=== PATIENT | female | born 1935 | race Caucasian/White ===

== ENCOUNTER 2019-11-03 20:11 | Emergency (ER) | payer MEDICARE, OTHER ==
[2019-11-03 20:55] VITALS: O2SAT 99
--- NOTE | 2019-11-03 21:00 | ERPHSYRPT ---
- History of Present Illness Time Seen by Provider: 11/03/19 20:30 Source: patient Patient Subjective Stated Complaint: pt states that she was reaching around her indoor bike, pt states that she got her finger stuck in the clamp, pt states that she tried to get her finger out but it keep tearing Triage Nursing Assessment: pt ambulated into er with cane, pt is axo x4, pt has laceration to rt middle finger, laceration measures 3 cm x 0.5 cm and 1 cm x 0.5 cm, pt states 5/10 pain to rt middle finger Physician History: 84 years old female presented in the ER after her right third digit accidentally got stuck in hook and exercising indoor bike at home prior to arrival causing care on dorsal aspect. There was bleeding initially but stopped after applying pressure. She is still able to move her interphalangeal joint but painful. Patient described this as a sharp shooting pain moderate intensity, more with movements and better with being still. Denies any distal numbness. Up-to-date with tetanus. No injury anywhere else. Occurred: just prior to arrival Method of Injury: fell Quality: constant Severity of Pain-Max: moderate Severity of Pain-Current: moderate Extremities Pain Location: 3rd finger: right Modifying Factors: Improves With: immobilization, movement Associated Symptoms: none Allergies/Adverse Reactions: Sulfa (Sulfonamide Antibiotics) [Sulfa(Sulfonamide Antibiotics)] Allergy ( Intermediate, Verified 11/03/19 20:56) Hives adhesive Adverse Reaction (Intermediate, Verified 11/03/19 20:56) Home Medications: Citalopram Hydrobromide 20 mg* [ceLEXa 20 MG] 20 mg PO HS 01/15/12 [History] Omeprazole 20 MG [Prilosec 20 mg] 20 mg PO DAILY 01/15/12 [History] Tramadol HCl 50 mg [Ultram 50 mg] 50 mg PO DAILY 01/15/12 [History] Zolpidem Tartrate 5 mg [Ambien 5 MG Tablet] 5 mg PO HS 11/03/19 [History] Hx Tetanus, Diphtheria Vaccination/Date Given: Yes Hx Influenza Vaccination/Date Given: Yes Hx Pneumococcal Vaccination/Date Given: Yes Travel Risk - International Travel Have you traveled outside of the country in past 3 weeks: No Have you or anyone close to you been diagnosed with or: No Do your reside in a community with a known COVID-19 case?: Yes If Yes where:: [place] - Coronavirus Screening Has patient experienced Coronavirus symptoms: No - Review of Systems Constitutional: No Symptoms Eyes: No Symptoms Ears, Nose, & Throat: No Symptoms Respiratory: No Symptoms Cardiac: No Symptoms Abdominal/Gastrointestinal: No Symptoms Musculoskeletal: Injury Skin: Skin Lesions Neurological: No Symptoms Psychological: No Symptoms Endocrine: No Symptoms - Past Medical History Pertinent Past Medical History: Yes Neurological History: No Pertinent History ENT History: No Pertinent History Cardiac History: No Pertinent History Respiratory History: No Pertinent History Endocrine Medical History: No Pertinent History Musculoskeletal History: Arthritis, Fractures, Osteoarthritis, Osteoporosis GI Medical History: No Pertinent History History: No Pertinent History Psycho-Social History: No Pertinent History Female Reproductive Disorders: No Pertinent History - Past Surgical History Past Surgical History: Yes Neuro Surgical History: No Pertinent History Cardiac: Cardiac Catheterization Respiratory: No Pertinent History Gastrointestinal: Hemorrhoidectomy Genitourinary: No Pertinent History Musculoskeletal: Other Female Surgical History: Hysterectomy Other Surgical History: childbirth x three natural,, cataract surgery,ortho- 2010 or 2011 shoulder with pins/lillie placed,[id number] neck fracture with a brace applied only. No surgery. fx left hip with orif 01/2016 - Social History Smoking Status: Never smoker Exposure to second hand smoke: No Drug Use: none Patient Lives Alone: No - Female History Hx Now: No - Nursing Vital Signs Nursing Vital Signs: Initial Vital Signs Temperature 98.4 F 11/03/19 20:41 Pulse Rate 69 11/03/19 20:41 Respiratory Rate 13 11/03/19 20:41 Blood Pressure 152/76 11/03/19 20:41 O2 Sat by Pulse Oximetry 99 11/03/19 20:41 Pain Scale Pain Intensity 2 - Physical Exam General Appearance: no apparent distress Eyes, Ears, Nose, Throat Exam: normal ENT inspection, pharynx normal Neck Exam: normal inspection, supple Cardiovascular/Respiratory Exam: normal breath sounds, regular rate/rhythm Shoulder Exam: non-tender, no evidence of injury, normal ROM Elbow/Forearm Exam: normal inspection, non-tender, no evidence of injury, normal ROM Wrist Exam: normal inspection, non-tender, no evidence of injury, normal ROM Hand Exam: laceration (Right third digit dorsal aspect middle phalanx intact movements at proximal and distal interphalangeal joint. Intact sensations distally. Cap refill less than 2 seconds), limited ROM Neuro/Tendon Exam: normal sensation, normal tendon functions Mental Status Exam: alert, oriented x 3, cooperative Skin Exam: normal color SpO2 Interpretation: normal SpO2: 99 O2 Delivery: Room Air Procedures - Laceration/Wound Repair Right Dorsal Finger Wound Location: hand Wound Length (cm): 4 Wound's Depth, Shape: superficial Wound Explored: clean Irrigated: Yes Hibiclens Prep: Yes Anesthesia: local, 1% Lidocaine Volume Anesthetic (ccs): 2 Suture Size/Type: 4-0, prolene Number of Sutures: 7 Layer Closure?: No - Course Nursing assessment & vital signs reviewed: Yes Ordered Tests: Active Orders 24 hr Category Date Time Status Isolation, Initiate & Maintain Q4H Care 11/03/19 20:55 Active - Progress Progress: improved, pain not gone completely Progress Note: 11/03/19 laceration is repaired. It was superficial injury no signs of bone trauma. Tendon seems intact. Recommended taking Tylenol/tramadol which she has at home as needed and outpatient follow-up. Counseled pt/family regarding: diagnosis, need for follow-up - Departure Departure Disposition: Home Clinical Impression: Finger laceration Qualifiers: Encounter type: initial encounter Finger: middle finger Damage to nail status: without damage Foreign body presence: without foreign body Laterality: right Qualified Code(s): S61.212A - Laceration without foreign body of right middle finger without damage to nail, initial encounter Condition: Stable Critical Care Time: No Referrals: DOCTOR,NO FAMILY [Primary Care Provider] - KAITY NI, [ACTIVE STAFF] - Instructions: Laceration Repair With Stitches (DC) Additional Instructions: keep it clean , take pain meds as needed. follow up with PCP for re evaluation and suture removal in 7-10 days . return for increased pain/swelling/redness discharge /fever.
[2019-11-03 21:10] VITALS: BP 138/90; PULSE 66
== END 2019-11-03 21:07 | disposition home or self-care (01) ==
LOC: ED 20:11
DX: S61.212A Laceration without foreign body of right middle finger without damage to nail, initial encounter (principal); W23.1XXA Caught, crushed, jammed, or pinched between stationary objects, initial encounter; Y93.B1 Activity, exercise machines primarily for muscle strengthening; M79.644 Pain in right finger(s); Z79.899 Other long term (current) drug therapy; M81.0 Age-related osteoporosis without current pathological fracture; M19.90 Unspecified osteoarthritis, unspecified site
CPT/HCPCS: 12002; 99283

== ENCOUNTER 2020-11-18 09:55 | Observation (INO) | payer MEDICARE, OTHER ==
[2020-11-18] MEDS ORDERED: Sodium Chloride 0.9% 1000 ML 1,000 ML IV SCH (10:30)
[2020-11-18] MEDS ORDERED: Sodium Chloride 0.9% 1000 ML 1,000 ML ONE (10:34)
--- NOTE | 2020-11-18 10:34 | ERPHSYRPT ---
- History of Present Illness Time Seen by Provider: 11/18/20 10:10 Historian: patient Exam Limitations: no limitations Patient Subjective Stated Complaint: Diarrhea Triage Nursing Assessment: Patient brought back to ED via w/c and transferred self to bed. Patient A+O X3. Patient's skin pink, warm and dry. Patient states she has been having diarrhea since Sunday. Patient states her dionte legs are cramping and she is feeling weak. Patient denies N/V or abdominal pain. Physician History: Patient is an 85-year-old female presents to our emergency department with complaints of generalized weakness which she attributes to diarrhea. Patient has also experienced leg cramping. Patient states she has had diarrhea since Mo . Today is day 4. Patient states she has been trying to rehydrate herself with Gatorade however patient states that Gatorade runs right through her. Patient denies pain. No nausea no vomiting. No recent travel. Stool is nonbloody nonbilious. No fever. No sick contacts. No URI symptomology. No cough. No rash. Daughter at bedside. Patient has been taking Imodium for her diarrhea however this has not been very helpful. They voiced no other complaints concerns at this time. Timing/Duration: day(s) (4 days) Activities at Onset: none Quality: other (Patient has no pain.) Abdominal Pain Onset Location: other Pain Radiation: no radiation Severity of Pain-Max: none Severity of Pain-Current: none Modifying Factors: Improves With: nothing Associated Symptoms: weakness Previous symptoms: no prior history Allergies/Adverse Reactions: Sulfa (Sulfonamide Antibiotics) [Sulfa(Sulfonamide Antibiotics)] Allergy (Intermediate, Verified 11/18/20 10:06) Hives adhesive Adverse Reaction (Intermediate, Verified 11/18/20 10:06) Home Medications: Citalopram Hydrobromide 20 mg* [ceLEXa 20 MG] 20 mg PO HS 01/15/12 [History] Omeprazole 20 MG [Prilosec 20 mg] 20 mg PO DAILY 01/15/12 [History] Tramadol HCl 50 mg [Ultram 50 mg] 50 mg PO DAILY 01/15/12 [History] Zolpidem Tartrate 5 mg [Ambien 5 MG Tablet] 5 mg PO HS 11/03/19 [History] Hx Tetanus, Diphtheria Vaccination/Date Given: Yes Hx Influenza Vaccination/Date Given: Yes Hx Pneumococcal Vaccination/Date Given: Yes Immunizations Up to Date: Yes Travel Risk - International Travel Have you traveled outside of the country in past 3 weeks: No - Coronavirus Screening Are you exhibiting any of the following symptoms?: No Close contact with a COVID-19 positive Pt in past 14-21 Days: No - Vaccine Status Have you recieved a Covid-19 vaccination: Yes General Internist: Moderna - Vaccination Dates Date of 2cond Vaccination (if applicable): 07/21/2020 - Review of Systems Constitutional: No Symptoms, No Fever, No Chills Eyes: No Symptoms Ears, Nose, & Throat: No Symptoms Respiratory: No Symptoms, No Cough, No Dyspnea Cardiac: No Symptoms, No Chest Pain, No Edema, No Syncope Abdominal/Gastrointestinal: No Symptoms, No Abdominal Pain, No Nausea, No Vomiting, No Diarrhea Genitourinary Symptoms: No Symptoms, No Dysuria Musculoskeletal: No Symptoms, No Back Pain, No Neck Pain Skin: No Symptoms, No Rash Neurological: No Symptoms, No Dizziness, No Focal Weakness, No Sensory Changes Psychological: No Symptoms Endocrine: No Symptoms Hematologic/Lymphatic: No Symptoms Immunological/Allergic: No Symptoms All Other Systems: Reviewed and Negative - Past Medical History Pertinent Past Medical History: Yes Neurological History: No Pertinent History ENT History: No Pertinent History Cardiac History: No Pertinent History Respiratory History: No Pertinent History Endocrine Medical History: No Pertinent History Musculoskeletal History: Arthritis, Fractures, Osteoarthritis, Osteoporosis GI Medical History: No Pertinent History History: No Pertinent History Psycho-Social History: No Pertinent History Female Reproductive Disorders: No Pertinent History - Past Surgical History Past Surgical History: Yes Neuro Surgical History: No Pertinent History Cardiac: Cardiac Catheterization Respiratory: No Pertinent History Gastrointestinal: Hemorrhoidectomy Genitourinary: No Pertinent History Musculoskeletal: Other Female Surgical History: Hysterectomy Other Surgical History: childbirth x three natural,, cataract surgery,ortho- 2010 or 2011 shoulder with pins/lillie placed,[id number] neck fracture with a brace applied only. No surgery. fx left hip with orif 01/2016 - Social History Smoking Status: Never smoker Exposure to second hand smoke: No Drug Use: none Patient Lives Alone: Yes - Female History Hx Now: No - Nursing Vital Signs Nursing Vital Signs: Initial Vital Signs Temperature 98.5 F 11/18/20 10:08 Pulse Rate 84 11/18/20 10:08 Respiratory Rate 18 11/18/20 10:08 Blood Pressure 154/95 11/18/20 10:08 O2 Sat by Pulse Oximetry 100 11/18/20 10:08 Pain Scale Pain Intensity 7 - Physical Exam General Appearance: no apparent distress, alert Eye Exam: PERRL/EOMI, eyes nml inspection Ears, Nose, Throat Exam: normal ENT inspection, pharynx normal, moist mucous membranes Neck Exam: normal inspection, non-tender, supple, full range of motion Respiratory Exam: normal breath sounds, lungs clear, No respiratory distress Cardiovascular Exam: regular rate/rhythm, normal heart sounds Gastrointestinal/Abdomen Exam: soft, No tenderness, No mass Back Exam: normal inspection, normal range of motion, No CVA tenderness, No vertebral tenderness Extremity Exam: normal inspection, normal range of motion, pelvis stable Neurologic Exam: alert, oriented x 3, cooperative, normal mood/affect, nml cerebellar function, sensation nml, No motor deficits Skin Exam: normal color, warm, dry Lymphatic Exam: adenopathy SpO2 Interpretation: normal SpO2: 100 O2 Delivery: Room Air - Course Nursing assessment & vital signs reviewed: Yes EKG Interpreted by Me: RATE (82), Sinus Rhythm, NORMAL AXIS, NORMAL INTERVALS Ordered Tests: Active Orders 24 hr Category Date Time Status IV Insertion STAT Care 11/18/20 10:27 Active CBC W DIFF Stat Lab 11/18/20 10:49 Completed CMP Stat Lab 11/18/20 10:49 Completed LIPASE Stat Lab 11/18/20 10:49 Completed MAG [MAGNESIUM] Stat Lab 11/18/20 11:47 Completed TROPONIN Q3H Lab 11/18/20 12:00 Completed TROPONIN Q3H Lab 11/18/20 15:00 Ordered TROPONIN Q3H Lab 11/18/20 18:00 Ordered TROPONIN Q3H Lab 11/18/20 21:00 Ordered TROPONIN Q3H Lab 11/19/20 00:00 Ordered UA W/RFX UR CULTURE Stat Lab 11/18/20 10:33 Completed Transfer Order Routine Transfer 11/18/20 Ordered Medication Summary Generic Name Dose Route Start Last Admin Trade Name Freq PRN Reason Stop Dose Admin Sodium Chloride 1,000 mls @ 100 mls/hr 11/18/20 10:30 11/18/20 10:35 Sodium Chloride 0.9% 1000 Ml IV 12/18/20 10:29 100 mls/hr .Q10H CLAUDIA Administration Discontinued Medications Generic Name Dose Route Start Last Admin Trade Name Gino PRN Reason Stop Dose Admin Lorazepam Confirm 11/18/20 11:41 Ativan 1 Mg Administered 11/18/20 11:42 Dose 1 mg .ROUTE .STK-MED ONE Lorazepam 0.5 mg 11/18/20 11:46 11/18/20 11:49 Ativan 0.5 Mg PO 11/18/20 11:47 0.5 mg STAT ONE Administration Morphine Sulfate 2 mg 11/18/20 14:03 11/18/20 14:05 Morphine Sulfate 2 Mg Inj IV 11/18/20 14:04 2 mg STAT ONE Administration Morphine Sulfate Confirm 11/18/20 14:04 Morphine Sulfate 2 Mg Inj Administered 11/18/20 14:05 Dose 2 mg .ROUTE .STK-MED ONE Lab/Rad Data: Laboratory Result Diagrams 11/18/20 10:49 11/18/20 10:49 Laboratory Results 11/18/20 11/18/20 11/18/20 Range/Units 12:47 12:00 11:47 WBC (4.0-10.5) K/mm3 RBC (4.1-5.4) M/mm3 Hgb (12.0-16.0) gm/dl Hct (35-47) % MCV (78-100) fl MCH (26-32) pg MCHC (32-36) g/dl RDW (11.5-14.0) % Plt Count (150-450) K/mm3 MPV (7.5-11.0) fl Gran % (36.0-66.0) % Eos # (Auto) (0-0.5) Absolute Lymphs (auto) (1.0-4.6) Absolute Monos (auto) (0.0-1.3) Lymphocytes % (24.0-44.0) % Monocytes % (0.0-12.0) % Eosinophils % (0.00-5.0) % Basophils % (0.0-0.4) % Absolute Granulocytes (1.4-6.9) Basophils # (0-0.4) Sodium (137-145) mmol/L Potassium (3.5-5.1) mmol/L Chloride (98-107) mmol/L Carbon Dioxide (22-30) mmol/L Anion Gap (5-15) MEQ/L BUN (7-17) mg/dL Creatinine (0.52-1.04) mg/dL Estimated GFR ML/MIN Glucose (74-106) mg/dL Calcium (8.4-10.2) mg/dL Magnesium 2.0 (1.6-2.3) mg/dL Total Bilirubin (0.2-1.3) mg/dL AST (14-36) U/L ALT (0-35) U/L Alkaline Phosphatase (38-126) U/L Troponin I < 0.012 (0.000-0.034) ng/mL Serum Total Protein (6.3-8.2) g/dL Albumin (3.5-5.0) g/dL Lipase (23-300) U/L Urine Color (YELLOW) Urine Appearance (CLEAR) Urine pH (5-6) Ur Specific [place] (1.005-1.025) Urine Protein (Negative) Urine Ketones (NEGATIVE) Urine Blood (0-5) Isac/ul Urine Nitrite (NEGATIVE) Urine Bilirubin (NEGATIVE) Urine Urobilinogen (0-1) mg/dL Ur Leukocyte Esterase (NEGATIVE) Urine WBC (Auto) (0-5) /HPF Urine RBC (Auto) (0-2) /HPF U Epithel Cells (Auto) (FEW) /HPF Urine Bacteria (Auto) (NEGATIVE) /HPF Urine Mucus (Auto) (NEGATIVE) /HPF Urine Culture Reflexed (NO) Urine Glucose (NEGATIVE) mg/dL SARS-CoV-2 (PCR) NEGATIVE (NEGATIVE) 11/18/20 11/18/20 11/18/20 Range/Units 10:49 10:49 10:33 WBC 8.6 (4.0-10.5) K/mm3 RBC 4.19 (4.1-5.4) M/mm3 Hgb 13.2 (12.0-16.0) gm/dl Hct 41.5 (35-47) % MCV 99.0 (78-100) fl MCH 31.5 (26-32) pg MCHC 31.8 L (32-36) g/dl RDW 14.0 (11.5-14.0) % Plt Count 241 (150-450) K/mm3 MPV 9.7 (7.5-11.0) fl Gran % 75.7 H (36.0-66.0) % Eos # (Auto) 0.15 (0-0.5) Absolute Lymphs (auto) 1.42 (1.0-4.6) Absolute Monos (auto) 0.50 (0.0-1.3) Lymphocytes % 16.6 L (24.0-44.0) % Monocytes % 5.8 (0.0-12.0) % Eosinophils % 1.7 (0.00-5.0) % Basophils % 0.2 (0.0-0.4) % Absolute Granulocytes 6.49 (1.4-6.9) Basophils # 0.02 (0-0.4) Sodium 141 (137-145) mmol/L Potassium 4.1 (3.5-5.1) mmol/L Chloride 104 (98-107) mmol/L Carbon Dioxide 28 (22-30) mmol/L Anion Gap 13.0 (5-15) MEQ/L BUN 16 (7-17) mg/dL Creatinine 0.92 (0.52-1.04) mg/dL Estimated GFR > 60.0 ML/MIN Glucose 98 (74-106) mg/dL Calcium 9.9 (8.4-10.2) mg/dL Magnesium (1.6-2.3) mg/dL Total Bilirubin 0.70 (0.2-1.3) mg/dL AST 41 H (14-36) U/L ALT 18 (0-35) U/L Alkaline Phosphatase 50 (38-126) U/L Troponin I (0.000-0.034) ng/mL Serum Total Protein 7.5 (6.3-8.2) g/dL Albumin 4.5 (3.5-5.0) g/dL Lipase 167 (23-300) U/L Urine Color YELLOW (YELLOW) Urine Appearance SLIGHTLY CLOUDY (CLEAR) Urine pH 5.0 (5-6) Ur Specific [place] 1.013 (1.005-1.025) Urine Protein NEGATIVE (Negative) Urine Ketones NEGATIVE (NEGATIVE) Urine Blood NEGATIVE (0-5) Isac/ul Urine Nitrite NEGATIVE (NEGATIVE) Urine Bilirubin NEGATIVE (NEGATIVE) Urine Urobilinogen NEGATIVE (0-1) mg/dL Ur Leukocyte Esterase NEGATIVE (NEGATIVE) Urine WBC (Auto) NONE (0-5) /HPF Urine RBC (Auto) 0-2 (0-2) /HPF U Epithel Cells (Auto) RARE (FEW) /HPF Urine Bacteria (Auto) NONE (NEGATIVE) /HPF Urine Mucus (Auto) SLIGHT (NEGATIVE) /HPF Urine Culture Reflexed NO (NO) Urine Glucose NEGATIVE (NEGATIVE) mg/dL SARS-CoV-2 (PCR) (NEGATIVE) - Progress Progress: improved Progress Note: Patient reassessed. She feels well. Work-up at this point essentially negative. However patient continues to feel weak. She does have diarrhea. We will admit for rehydration. Case discussed with Dr. Jaramillo accepts admission to observation. Patient is Covid negative. Patient agrees to admission [facility] for further evaluation and treatment. 11/18/20 15:05 Discussed with : Kirsten Will see patient in: hospital (observation) Counseled pt/family regarding: lab results, diagnosis, rad results - Departure Departure Disposition: Observation Clinical Impression: Diarrhea, Dehydration, Generalized weakness Condition: Stable Critical Care Time: No Referrals: DOCTOR,NO FAMILY [NON-STAFF PHY W/O PRIVILEGES] -
[2020-11-18 11:03] LABS: ALBUMIN 4.5 g/dL (3.5-5.0); ALKALINE PHOSPHATASE 50 U/L (38-126); BLOOD UREA NITROGEN 16 mg/dL (7-17); CHLORIDE 104 mmol/L (98-107); Calcium 9.9 mg/dL (8.4-10.2); Carbon Dioxide 28 mmol/L (22-30); Creatinine 1 0.92 mg/dL (0.52-1.04); EST GLOMERULAR FILTRATION RATE > 60.0 ML/MIN; Glucose 98 mg/dL (74-106); LIPASE 167 U/L (23-300); Potassium 4.1 mmol/L (3.5-5.1); SGOT/AST 41 U/L (14-36); SGPT/ALT 18 U/L (0-35); SODIUM 141 mmol/L (137-145); Total Protein 7.5 g/dL (6.3-8.2)
[2020-11-18 11:04] LABS: Absolute Neutrophil Ct (ANC) 6.49 (1.4-6.9); BASOPHIL % 0.2 % (0.0-0.4); Basophil (Absolute #) 0.02 (0-0.4); Eosinophil % 1.7 % (0.00-5.0); Eosinophil (Absolute #) 0.15 (0-0.5); Hematocrit 41.5 % (35-47); Hemoglobin 13.2 gm/dl (12.0-16.0); Lymphocyte (Absolute #) 1.42 (1.0-4.6); Lymphocytes % 16.6 % (24.0-44.0); Mean Corpuscular Hemoglobin 31.5 pg (26-32); Mean Corpuscular Hgb Concent. 31.8 g/dl (32-36); Mean Platelet Volume 9.7 fl (7.5-11.0); Monocytes % 5.8 % (0.0-12.0); Neutrophil % 75.7 % (36.0-66.0); Platelet Count 241 K/mm3 (150-450); Red Blood Count 4.19 M/mm3 (4.1-5.4); White Blood Count 8.6 K/mm3 (4.0-10.5)
[2020-11-18 11:07] LABS: Appearance SLIGHTLY CLOUDY (CLEAR); Bilirubin NEGATIVE (NEGATIVE); Blood NEGATIVE Ery/ul (0-5); Epithelial Cells RARE /HPF (FEW); Glucose NEGATIVE (NEGATIVE); Ketones NEGATIVE (NEGATIVE); Leukocyte Esterase NEGATIVE (NEGATIVE); Mucus SLIGHT /HPF (NEGATIVE); Nitrite NEGATIVE (NEGATIVE); Protein,Urine Dip NEGATIVE (Negative); RBC 0-2 /HPF (0-2); Specific Gravity 1.013 (1.005-1.025); Urobilinogen NEGATIVE mg/dL (0-1)
[2020-11-18] MEDS ORDERED: Ativan 1 MG ONE (11:41)
[2020-11-18] MEDS ORDERED: Ativan 0.5 MG PO ONE (11:46)
[2020-11-18] MEDS ORDERED: MORPHINE SULFATE 2 MG INJ IV ONE (14:03)
[2020-11-18] MEDS ORDERED: MORPHINE SULFATE 2 MG INJ ONE (14:04)
[2020-11-18] MEDS: Sodium Chloride 0.9% 1000 ML 1,000 ML IV SCH (16:09)
[2020-11-18] MEDS ORDERED: Ativan 0.5 MG PO PRN (17:08)
[2020-11-18] MEDS ORDERED: ULTRAM 50 MG PO PRN (17:08)
[2020-11-18] MEDS ORDERED: Protonix 40MG Tablet PO SCH (17:30)
[2020-11-18] MEDS ORDERED: Ambien 5 MG Tablet PO SCH (22:00)
[2020-11-19] MEDS: Sodium Chloride 0.9% 1000 ML 1,000 ML IV SCH (02:04)
[2020-11-19 05:05] LABS: BASOPHIL % 0.3 % (0.0-0.4); Basophil (Absolute #) 0.02 (0-0.4); Eosinophil % 6.2 % (0.00-5.0); Eosinophil (Absolute #) 0.47 (0-0.5); Hematocrit 36.2 % (35-47); Hemoglobin 11.3 gm/dl (12.0-16.0); Lymphocyte (Absolute #) 1.96 (1.0-4.6); Lymphocytes % 25.8 % (24.0-44.0); Mean Cell Volume 100.3 fl (78-100); Mean Corpuscular Hemoglobin 31.3 pg (26-32); Mean Corpuscular Hgb Concent. 31.2 g/dl (32-36); Mean Platelet Volume 9.6 fl (7.5-11.0); Monocyte (Absolute #) 0.65 (0.0-1.3); Monocytes % 8.6 % (0.0-12.0); Neutrophil % 59.1 % (36.0-66.0); Platelet Count 207 K/mm3 (150-450); Red Blood Count 3.61 M/mm3 (4.1-5.4); White Blood Count 7.6 K/mm3 (4.0-10.5)
[2020-11-19 05:20] LABS: ALBUMIN 3.4 g/dL (3.5-5.0); ALKALINE PHOSPHATASE 34 U/L (38-126); ANION GAP 9.3 MEQ/L (5-15); BLOOD UREA NITROGEN 16 mg/dL (7-17); CHLORIDE 110 mmol/L (98-107); Calcium 8.7 mg/dL (8.4-10.2); Carbon Dioxide 26 mmol/L (22-30); Creatinine 1 0.84 mg/dL (0.52-1.04); EST GLOMERULAR FILTRATION RATE > 60.0 ML/MIN; Glucose 86 mg/dL (74-106); Potassium 3.8 mmol/L (3.5-5.1); SGOT/AST 35 U/L (14-36); SGPT/ALT 15 U/L (0-35); SODIUM 141 mmol/L (137-145); Total Protein 5.8 g/dL (6.3-8.2)
[2020-11-19 08:05] VITALS: BP 145/70; PULSE 74; O2SAT 98
--- NOTE | 2020-11-19 08:45 | HP ---
CHIEF COMPLAINT: Weakness and diarrhea. HISTORY OF PRESENT ILLNESS: The patient is an 85 year-old white female who reports she began becoming somewhat sick on Sunday at [employer]. She did not feel like staying. She left early and did not go back for evening service. On Sunday she began having problems with diarrhea and at this point she got to just feeling weak and that she might experience falling therefore she presented herself to the emergency room after discussion with her daughter. She was found to be in fairly good shape with no particular abnormalities noted other than just her overall weakness. PAST MEDICAL/SURGICAL HISTORY: Significant for falling including fractures of the neck, arm and hip previously but she takes Prolia twice a year now and she reports her bones have been strong since that time. The patient otherwise reports she is as healthy as a horse. She has previously had a cardiac catheterization. She reports she has no history of heart failure. She has had a hysterectomy. HOME MEDICATIONS: Citalopram 20 mg a day. Prolia every six months. Lorazepam 0.5 mg every 8 hours PRN anxiety. She takes multivitamins, omeprazole 20 mg a day, tramadol 100 mg twice a day as needed for pain and Ambien 5 mg for sleep. ALLERGIES: SULFA. ADHESIVES. PHYSICAL EXAMINATION: Her vital signs on admission showed her temperature to be 98.5F, pulse 84, respiratory rate 18 and blood pressure 154/95. O2 saturation 100% on room air. HEENT: Normocephalic, atraumatic. Pupils equal round reactive to light. Extraocular movements intact. Oropharynx is slightly dry. NECK: Supple without lymphadenopathy, thyromegaly or JVD. CHEST: Clear to auscultation. HEART: Regular rate and rhythm without significant murmurs, rubs or gallops heard. ABDOMEN: Soft. No palpable masses. EXTREMITIES: Without cyanosis or clubbing. There is trace edema noted. NEUROLOGIC: She is alert and oriented x3 with no focal deficits noted. LAB DATA AND TESTS: Her laboratory studies in the emergency room revealed UA with specific gravity of 1.013 and no white blood cells were seen. Her troponin was less than 0.012. Magnesium 2.0. Her white count was 8,600, hemoglobin 13.2, PLT count 241,000. Sugar 98, BUN 16, creatinine 0.92. Electrolytes were normal. Liver enzymes were slightly elevated with AST of 41 but the ALT was normal. COVID test was negative. The patient was in normal sinus rhythm on a rhythm strip and 12-lead EKG showed some abnormalities in the anterior leads but no acute changes were noted with normal T-waves and normal ST segments. ASSESSMENT: A patient with diarrheal illness. The next stool she has we will send off for enteric pathogens. She is receiving IV fluid hydration presently of normal saline at 100 cc/hour. She reports that during the few hours that she has been here that she is already feeling better. The patient will be given a cardiac diet and allowed to ambulate and if she produces a stool will check it for enteric pathogens.
--- NOTE | 2020-11-19 09:02 | DS ---
DISCHARGE DIAGNOSES: 1) DIARRHEA. 2) DEHYDRATION. 3) WEAKNESS. HOSPITAL COURSE: The patient is an 85 year-old white female who presented to the emergency room after having approximately three to four days of diarrheal stools, becoming weak and dehydrated. The family thought that she should come in for evaluation. She was checked for IV fluid hydration otherwise all of her labs have been normal. Her vital signs have been stable. After IV hydration the patient was proven to be able to walk about on her own without assistance. The patient does live at home alone. At the time of discharge the patient was asked to see her primary care doctor, Dr. Richardson, in the next week after discharge, to return to the hospital should she have any further problems in the interim. Her discharge medications were the citalopram 20 mg daily, omeprazole 20 mg daily, tramadol 50 mg on an as needed basis for pain and Ambien 5 mg at night. If she has any further problems she is to come back to the emergency room or call us for further instructions.
[2020-11-19] MEDS ORDERED: NON-FORMULARY ITEM (L.Acidoph,Paracasei, B.Lactis [Probiotic] 1 EACH) PO SCH (10:00)
[2020-11-19] MEDS ORDERED: Acidophilus TABLET PO SCH (10:00)
[2020-11-19] MEDS ORDERED: NON-FORMULARY ITEM (Multivitamin [Multi-Vitamin Daily] 1 EACH) PO SCH (10:00)
[2020-11-19] MEDS ORDERED: THERAGRAN MULTIVITAMIN PO SCH (10:00)
[2020-11-19] MEDS ORDERED: NON-FORMULARY ITEM (Omeprazole 20 Mg [Prilosec 20 Mg] 20 MG) PO SCH (10:00)
[2020-11-19] MEDS ORDERED: Ambien 10 MG PO SCH (22:00)
== END 2020-11-19 09:40 | disposition home or self-care (01) ==
LOC: ED 09:55 → MED SURG 15:14
PROVIDERS: ADMIT Family Medicine; ATTEND Family Medicine
DX: R19.7 Diarrhea, unspecified (principal); E86.0 Dehydration; R53.1 Weakness; R25.2 Cramp and spasm; Z79.899 Other long term (current) drug therapy; Z20.828 Contact with and (suspected) exposure to other viral communicable diseases
CPT/HCPCS: 36000; 36415; 80053; 81001; 83690; 83735; 84484; 85025; 96374; 99285; U0003; 93268; 96360; 96361; G0378; J2270; A9270-GY